=== PATIENT | male | born 1950 | race Caucasian/White ===

== ENCOUNTER → 2017-12-14 | Outpatient (CLI) | payer OTHER ==
[~2017-12-14] VITALS: Ht 170.2 cm; Wt 63.5 kg
[~2017-12-14] MED LIST: ASPIR 8181 MG PO; CIPROFLOXACIN500 M1 PO; CRESTOR10 MG PO; FISH OIL 1,001000 M2 PO; LISINOPRIL2.5 MG; LISINOPRIL5 MG PO; NORCO 5-325 TA1 EACH PO; PRAVACHOL80 MG PO; STATIN; VITAMIN D-32000 UNIT PO
--- NOTE | ~2017-12-14 | P ---
[facility] [address] [place] [address] PROCEDURE REPORT Name: TAVIA BURKS [facility]: [facility]Juan LuisJuan Luis#: [id number] Admission: 12/14/17 Attend Phys: Kiko Motley Discharge: Date of : 50 Report #: [id number] THIS REPORT FOR: //name// CC: Kiko Foley MD DATE OF SERVICE: 12/14/2017 PROCEDURE PERFORMED: Colonoscopy. HISTORY OF PRESENT ILLNESS: The patient is a 67-year-old male, with a history of tubular adenomatous polyp removed 5 years ago. He is here for routine 5-year followup. Denies any symptoms. No family history of colon cancer. DESCRIPTION OF PROCEDURE: The risks and benefits of the procedure were explained to the patient, those risks including but not limited to bleeding, perforation, the risk of sedation. He understood these risks and gave informed consent. Sedation was given using propofol per Anesthesia. Next, a digital rectal exam was initially performed, which was normal. Next, using a standard Olympus colonoscope, the scope was placed in the patient's anus and advanced under direct vision to the cecum. The overall prep was excellent. The cecum and ileocecal valve were normal in appearance. The ascending, transverse, descending and sigmoid colon were all normal. The rectal mucosa was normal. On retroflexion, no abnormalities were noted. The scope was then withdrawn and the procedure terminated. The patient tolerated the procedure well. IMPRESSION: Normal colonoscopy. RECOMMENDATIONS: Repeat colonoscopy in 10 years. Thank you for allowing me to participate in his care. <ELECTRONICALLY SIGNED> By: Kiko Mendoza MD 12/14/172008 [id number] Kiko Mendoza MD /nt
== END | disposition home or self-care (01) ==
LOC: GI 07:57
DX: Z12.11 Encounter for screening for malignant neoplasm of colon (principal); Z86.010 Personal history of colon polyps; I10 Essential (primary) hypertension; E78.5 Hyperlipidemia, unspecified; Z87.442 Personal history of urinary calculi; Z98.890 Other specified postprocedural states; Z79.82 Long term (current) use of aspirin; Z79.899 Other long term (current) drug therapy
CPT/HCPCS: 62110; 62900

== ENCOUNTER → 2019-05-25 | Outpatient (CLI) | payer OTHER | END | disposition home or self-care (01) | LOC: SJCVCIMAG 09:49 | DX: I25.10 Atherosclerotic heart disease of native coronary artery without angina pectoris (principal); E78.00 Pure hypercholesterolemia, unspecified ==